=== PATIENT | male | born 1990 ===

== ENCOUNTER 2021-07-05 16:23 | Inpatient (IN) | payer SELFPAY ==
[2021-07-05] MEDS ORDERED: SODIUM CHLORIDE 0.9% 1000 ML 1,000 ML IV ONE (19:19)
[2021-07-05] MEDS ORDERED: KETOROLAC 30 MG/1 ML INJ IV ONE (19:20)
--- NOTE | 2021-07-05 20:16 | XRay Report ---
XR chest 1V ap INDICATION / CLINICAL INFORMATION: Weakness. COMPARISON: None available. FINDINGS: SUPPORT DEVICES: None. HEART /PULMONARY VASCULATURE: No significant abnormality. LUNGS / PLEURA: There are diffuse nodular opacities throughout the lungs with increased interstitial prominence. No focal consolidation. There is no pleural effusion or pneumothorax. No pneumothorax. ADDITIONAL FINDINGS: No significant additional findings. IMPRESSION: Diffuse nodular opacities throughout the lungs with diffuse increased interstitial prominence. Findin gs are suspicious for atypical pneumonia. Recommend further evaluation with CT. Signer Name: Bacilio Correia MD Signed: 07/05/2021 8:11 PM Workstation Name: [id number]
[2021-07-05 20:38] LABS: Mean Corpuscular HGB Conc 35 % (32-34); Mean Corpuscular Volume 89 fl (84-94); Platelet Count 112 K/mm3 (140-440); Red Blood Count 5.19 M/mm3 (3.65-5.03); Red Cell Distribution Width 13.4 % (13.2-15.2)
[2021-07-05 20:54] LABS: INR 0.93 (0.87-1.13)
[2021-07-05 21:09] LABS: Alanine Aminotransferase 54 units/L (7-56); Albumin 4.5 g/dL (3.9-5); BUN/Creatinine Ratio 18; Blood Urea Nitrogen 18 mg/dL (9-20); Hemolysis Index 8
[2021-07-05 21:23] LABS: Band Neutrophils # (Manual) 0.4 K/mm3; Eosinophils % (Manual) 0 % (0.0-4.3); Total Cells Counted 100
[2021-07-05 21:24] LABS: Basophils % (Manual) 0 % (0.0-1.8); Platelet Estimate Consistent w Auto; RBC Morphology Normal
[2021-07-05] MEDS ORDERED: cefTRIAXone/NS 1 GM/50 ML 1 GM/50 ML BAG IV ONE (22:50)
[2021-07-05 22:53] LABS: Bilirubin,Urine NEG (Negative); Blood,Urine NEG (Negative); Color,Urine Amber (Yellow); Mucus,Urine 3+ /HPF; Urobilinogen,Urine < 2.0 mg/dL (<2.0)
[2021-07-05] MEDS ORDERED: dexAMETHasone 4 MG/ML VIAL IV ONE (22:55)
--- NOTE | 2021-07-05 23:56 | Emergency Department Report ---
ED General Adult HPI - General Chief complaint: Skin Rash Stated complaint: RASH, FEVER Time Seen by Provider: 07/05/21 19:18 Source: patient Mode of arrival: Ambulatory Limitations: No Limitations - History of Present Illness Initial comments: Rash all over his body, c/o fever -: Gradual, days(s) Location: head, face Severity scale (0 -10): 8 Consistency: constant Associated Symptoms: cough, fever/chills, rash. denies: denies other symptoms - Related Data Allergies Allergy/AdvReac Type Severity Reaction Status Date / Time No Known Allergies Allergy Unverified 07/05/21 17:33 ED Review of Systems ROS: Stated complaint: RASH, FEVER Other details as noted in HPI Constitutional: denies: chills, fever Eyes: denies: eye pain, eye discharge, vision change ENT: denies: ear pain, throat pain Respiratory: denies: cough, shortness of breath, wheezing Cardiovascular: denies: chest pain, palpitations Endocrine: no symptoms reported Gastrointestinal: denies: abdominal pain, nausea, diarrhea Genitourinary: denies: urgency, dysuria Musculoskeletal: denies: back pain, joint swelling, arthralgia Skin: denies: rash, lesions Neurological: denies: headache, weakness, paresthesias Psychiatric: denies: anxiety, depression Hematological/Lymphatic: denies: easy bleeding, easy bruising ED Past Medical Hx - Past Medical History Previous Medical History?: No Hx Hypertension: No - Social History Smoking Status: Never Smoker ED Physical Exam - General Limitations: No Limitations General appearance: alert - Head Head exam: Present: atraumatic, normocephalic - Eye Eye exam: Present: normal appearance - ENT ENT exam: Present: mucous membranes moist - Neck Neck exam: Present: normal inspection - Respiratory Respiratory exam: Present: normal lung sounds bilaterally. Absent: respiratory distress - Cardiovascular Cardiovascular Exam: Present: regular rate, normal rhythm. Absent: systolic murmur, diastolic murmur, rubs, gallop - GI/Abdominal GI/Abdominal exam: Present: soft, normal bowel sounds - Rectal Rectal exam: Present: deferred - Extremities Exam Extremities exam: Present: normal inspection - Back Exam Back exam: Present: normal inspection - Neurological Exam Neurological exam: Present: alert, oriented X3 - Psychiatric Psychiatric exam: Present: normal affect, normal mood - Skin Skin exam: Present: rash - Expanded Skin Exam Expanded Type of lesion: Present: rash Distribution of rash: generalized, head, face, chest Description of rash: Present: macular, papular, confluent, crusting ED Course Vital Signs 07/05/21 07/05/21 07/05/21 17:34 18:33 19:58 Temperature 99.9 F H 98.4 F 101.9 F H Pulse Rate 113 H 85 Respiratory 18 18 Rate Blood Pressure 130/82 Blood Pressure 126/90 [Right] O2 Sat by Pulse 99 100 Oximetry ED Medical Decision Making - Lab Data Result diagrams: 07/05/21 19:48 07/05/21 19:48 Critical care attestation.: If time is entered above; I have spent that time in minutes in the direct care of this critically ill patient, excluding procedure time. ED Disposition Clinical Impression: Fever, Rash, Pneumonia Disposition: 09 ADMITTED INPATIENT Is pt being admited?: Yes Does the pt Need Aspirin: No Condition: Stable Instructions: Bacterial Pneumonia (ED) Referrals: PRIMARY CARE, [Primary Care Provider] - 3-5 Days
[2021-07-06] MEDS ORDERED: ONDANSETRON 4 MG/2 ML INJ IV PRN (00:38)
[2021-07-06] MEDS ORDERED: MORPHINE 2 MG/1 ML INJ IV PRN (00:38)
[2021-07-06] MEDS ORDERED: MORPHINE 4 MG/1 ML INJ IV PRN (00:38)
[2021-07-06] MEDS ORDERED: MAGNESIUM HYDROXIDE (MOM) ORAL LIQD UDC PO PRN (00:38)
[2021-07-06] MEDS ORDERED: ACETAMINOPHEN 325 MG TAB PO PRN (00:38)
--- NOTE | 2021-07-06 00:47 | History and Physical Report ---
History of Present Illness Date of examination: 07/06/21 Date of admission: 07/06/2021 Chief complaint: Fever Rash History of present illness: 30-year-old male presenting to the emergency room today complaining of fever rash which has been ongoing for a few days. Patient states that rash has been generalized and itchy. He denies any chest pain and denies any shortness of breath. Denies any cough, no nausea vomiting or abdominal pain. No hematuria or dysuria. Patient denies any recent travel, denies any known sick contacts, denies any contact with anyone with COVID-19. He admits that he only had a dose of COVID- 19 vaccine but never went back for subsequent doses. Patient works at [employer] and also rarely uses his mask. Most of the history was provided by family who was by bedside as patient is unable to communicate in Malian. Work-up in the emergency room today, labs are unremarkable. Chest x-ray however shows diffuse nodular opacities throughout the lung with diffuse increased interstitial prominence. Findings are suspicious for atypical pneumonia Further evaluation with CT of the chest recommended. Patient commenced on empiric IV antibiotics and IV steroid. Past History Past Medical History: No medical history Past Surgical History: No surgical history Social history: no significant social history Family history: no significant family history Medications and Allergies Allergies Allergy/AdvReac Type Severity Reaction Status Date / Time No Known Allergies Allergy Verified 07/06/21 00:47 Active Meds: Active Medications Acetaminophen (Acetaminophen 325 Mg Tab) 650 mg PO Q4H PRN PRN Reason: Pain MILD(1-3)/Fever >100.5/MARLOW Azithromycin (Azithromycin 250 Mg Tab) 500 mg PO QDAY HAYDE; Protocol Heparin Sodium (Porcine) (Heparin 5,000 Unit/1 Ml Vial) 5,000 unit SUB-Q Q8HR HAYDE Sodium Chloride (Nacl 0.9% 1000 Ml) 1,000 mls @ 125 mls/hr IV DIRECT HAYDE Ceftriaxone Sodium (Rocephin/Ns 2 Gm/100 Ml) 2 gm in 100 mls @ 200 mls/hr IV Q 24H HAYDE; Protocol Magnesium Hydroxide (Magnesium Hydroxide (Mom) Oral Liqd Udc) 30 ml PO Q4H PRN PRN Reason: Constipation Morphine Sulfate (Morphine 2 Mg/1 Ml Inj) 2 mg IV Q4H PRN PRN Reason: Pain, Moderate (4-6) Morphine Sulfate (Morphine 4 Mg/1 Ml Inj) 4 mg IV Q4H PRN PRN Reason: Pain , Severe (7-10) Ondansetron HCl (Ondansetron 4 Mg/2 Ml Inj) 4 mg IV Q8H PRN PRN Reason: Nausea And Vomiting Sodium Chloride (Sodium Chloride 0.9% 10 Ml Flush Syringe) 10 ml IV BID HAYDE Sodium Chloride (Sodium Chloride 0.9% 10 Ml Flush Syringe) 10 ml IV PRN PRN PRN Reason: LINE FLUSH Review of Systems Constitutional: fever, chills Ears, nose, mouth and throat: no nasal congestion, no sore throat Cardiovascular: no chest pain, no palpitations Respiratory: no cough, no shortness of breath Gastrointestinal: no abdominal pain, no nausea, no vomiting, no diarrhea Genitourinary Male: no dysuria, no hematuria, no flank pain Musculoskeletal: no neck pain, no low back pain Integumentary: rash, pruritis Neurological: no headaches, no confusion Psychiatric: no anxiety, no depression Endocrine: no polyphagia, no polydipsia, no polyuria, no nocturia Exam - Constitutional Vitals: Temp Pulse Resp BP Pulse Ox 101.9 F H 85 18 130/82 100 07/05/21 19:58 07/05/21 18:33 07/05/21 18:33 07/05/21 18:33 07/05/21 18:33 General appearance: Present: no acute distress, well-nourished - EENT Eyes: Present: PERRL, EOM intact. Absent: scleral icterus ENT: hearing intact, clear oral mucosa, dentition normal - Neck Neck: Present: supple, normal ROM - Respiratory Respiratory effort: normal Respiratory: bilateral: diminished - Cardiovascular Rhythm: regular Heart Sounds: Present: S1 & S2. Absent: gallop, systolic murmur, diastolic murmur, rub, click - Extremities Extremities: no ischemia, pulses intact, pulses symmetrical, No edema, normal temperature, Full ROM Peripheral Pulses: within normal limits - Abdominal General gastrointestinal: Present: soft, non-tender, non-distended, normal bowel sounds. Absent: mass - Integumentary Integumentary: Present: clear, warm, dry, rash (Diffuse erythemathous/pustular rash), normal turgor - Musculoskeletal Musculoskeletal: strength equal bilaterally - Psychiatric Psychiatric: appropriate mood/affect, intact judgment & insight, cooperative - Neurologic Neurologic: CNII-XII intact, no focal deficits, moves all extremities HEART Score - HEART Score Troponin: Troponin T < 0.010 ng/mL (0.00-0.029) 07/05/21 19:48 Results - Labs CBC & Chem 7: 07/05/21 19:48 07/05/21 19:48 Labs: Abnormal lab results 07/05/21 07/05/21 07/05/21 Range/Units 19:48 19:48 Unknown RBC 5.19 H (3.65-5.03) M/mm3 Hgb 16.0 H (11.8-15.2) gm/dl Hct 46.0 H (35.5-45.6) % MCHC 35 H (32-34) % Plt Count 112 L (140-440) K/mm3 Monocytes % (Manual) 14.0 H (0.0-7.3) % Monocytes # (Manual) 0.9 H (0.0-0.8) K/mm3 AST 49 H (5-40) units/L Ur Specific [place] 1.034 H (1.003-1.030) Assessment and Plan - Patient Problems (1) Pneumonia Current Visit: Yes Status: Acute Plan to address problem: Patient placed on empiric IV antibiotics and IV steroid. Will await culture results. Patient will also be ruled out for possible COVID-19. Scheduled for CT of the chest as recommended by the radiologist. Consult placed to infectious disease for further evaluation and recommendations. (2) Fever Current Visit: Yes Status: Acute Plan to address problem: Possibly secondary to the pneumonia. (3) Rash Current Visit: Yes Status: Acute Plan to address problem: Allergies: Clear. We will however place consult to infectious disease for evaluation and recommendations. (4) DVT prophylaxis Current Visit: Yes Status: Acute Plan to address problem: Patient placed on subcutaneous heparin. (5) Full code status Current Visit: Yes Status: Acute Plan to address problem: Patient is full code.
[2021-07-06] MEDS: cefTRIAXone/NS 2 GM/100 ML 2 GM/100 ML BAG IV SCH (03:05)
[2021-07-06] MEDS: SODIUM CHLORIDE 0.9% 1000 ML 1,000 ML IV SCH ×3 (03:29→23:08)
[2021-07-06] MEDS: HEPARIN 5,000 UNIT/1 ML VIAL SUB-Q SCH ×3 (05:54→22:56)
[2021-07-06] MEDS: dexAMETHasone 4 MG/ML VIAL IV SCH (10:20)
[2021-07-06] MEDS: AZITHROMYCIN 250 MG TAB PO SCH (10:20)
--- NOTE | 2021-07-06 11:55 | Consultation ---
History of Present Illness - Reason for Consult Consult date: 07/06/21 - History of Present Illness 30-year-old man no past medical history presented to hospital complaining of fevers and rash. This began a few days prior to admission, and he notes that the rash has been generalized and itchy. He otherwise denies complaints. He reports only having 1 dose of the COVID-vaccine. Febrile to 101.9 with a white count of 6.3. Normal renal function. Pending COVID PCR. Imaging personally reviewed: Chest x-ray: Diffuse nodular opacities throughout the lungs, possible atypical pneumonia. Review of systems: Deferred to reduce to the risk of transmission of COVID-19 Past History Past Medical History: No medical history Past Surgical History: No surgical history Social history: no significant social history Family history: hypertension Medications and Allergies Allergies Allergy/AdvReac Type Severity Reaction Status Date / Time No Known Allergies Allergy Verified 07/06/21 00:47 Active Meds: Active Medications Acetaminophen (Acetaminophen 325 Mg Tab) 650 mg PO Q4H PRN PRN Reason: Pain MILD(1-3)/Fever >100.5/MARLOW Last Admin: 07/06/21 03:28 Dose: 650 mg Azithromycin (Azithromycin 250 Mg Tab) 500 mg PO QDAY HAYDE; Protocol Stop: 07/10/21 10:01 Last Admin: 07/06/21 10:20 Dose: 500 mg Dexamethasone (Dexamethasone 4 Mg/Ml Vial) 6 mg IV Q24H HAYDE Last Admin: 07/06/21 10:20 Dose: 6 mg Heparin Sodium (Porcine) (Heparin 5,000 Unit/1 Ml Vial) 5,000 unit SUB-Q Q8HR HAYDE Last Admin: 07/06/21 05:54 Dose: 5,000 unit Sodium Chloride (Nacl 0.9% 1000 Ml) 1,000 mls @ 125 mls/hr IV DIRECT HAYDE Last Admin: 07/06/21 10:36 Dose: 125 mls/hr Ceftriaxone Sodium (Rocephin/Ns 2 Gm/100 Ml) 2 gm in 100 mls @ 200 mls/hr IV Q24H HAYDE; Protocol Last Admin: 07/06/21 03:05 Dose: Not Given Magnesium Hydroxide (Magnesium Hydroxide (Mom) Oral Liqd Udc) 30 ml PO Q4H PRN PRN Reason: Constipation Morphine Sulfate (Morphine 2 Mg/1 Ml Inj) 2 mg IV Q4H PRN PRN Reason: Pain, Moderate (4-6) Morphine Sulfate (Morphine 4 Mg/1 Ml Inj) 4 mg IV Q4H PRN PRN Reason: Pain , Severe (7-10) Ondansetron HCl (Ondansetron 4 Mg/2 Ml Inj) 4 mg IV Q8H PRN PRN Reason: Nausea And Vomiting Sodium Chloride (Sodium Chloride 0.9% 10 Ml Flush Syringe) 10 ml IV BID HAYDE Last Admin: 07/06/21 10:20 Dose: 10 ml Sodium Chloride (Sodium Chloride 0.9% 10 Ml Flush Syringe) 10 ml IV PRN PRN PRN Reason: LINE FLUSH Physical Examination - Physical Exam Narrative exam: Physical exam deferred to reduce risk of transmission of COVID-19. Please refer to primary team's note. - Constitutional Vitals: Vital Signs Temp Pulse Resp BP Pulse Ox 97.9 F 75 18 127/71 95 07/06/21 10:14 07/06/21 10:14 07/06/21 10:14 07/06/21 10:14 07/06/21 10:14 Temperature -Last 24 Hours Temperature 97.9 F Temperature 99.5 F Temperature 101.2 F Temperature 101.9 F Temperature 98.4 F Temperature 99.9 F Results - Labs CBC & Chem 7: 07/05/21 19:48 07/05/21 19:48 Labs: Abnormal lab results 07/05/21 07/05/21 07/05/21 Range/Units 19:48 19:48 Unknown RBC 5.19 H (3.65-5.03) M/mm3 Hgb 16.0 H (11.8-15.2) gm/dl Hct 46.0 H (35.5-45.6) % MCHC 35 H (32-34) % Plt Count 112 L (140-440) K/mm3 Monocytes % (Manual) 14.0 H (0.0-7.3) % Monocytes # (Manual) 0.9 H (0.0-0.8) K/mm3 AST 49 H (5-40) units/L Ur Specific [place] 1.034 H (1.003-1.030) Assessment and Plan Cultures: COVID-19 PCR pending A/P: 30-year-old man no past medical history now with: #COVID PUI: Pending PCR. Not hypoxic. Chest x-ray with nodular opacities. #Diffuse rash: Unclear etiology Recs: -Follow-up COVID PCR -If positive and patient hypoxic, please start dexamethasone. If requiring supplemental oxygen please start Remdesivir -Order procalcitonin for a.m. labs -Continue ceftriaxone and azithromycin for now. Thank you for the consult, we will continue to follow. Reji Lam MD [facility] O: [phone] F: [phone]
--- NOTE | 2021-07-06 12:35 | Progress Note ---
Assessment and Plan Assessment and plan: Sepsis. The patient meets criteria given the fever, tachycardia and diagnosis of pneumonia. COVID PUI Diffuse rash 07/06/2021. We will follow-up COVID PCR and if positive and hypoxic, we will start on dexamethasone. Follow-up procalcitonin levels. Continue ceftriaxone and azithromycin. ID following History Interval history: No new issues overnight Hospitalist Physical - Constitutional Vitals: Temp Pulse Resp BP Pulse Ox 97.9 F 75 18 127/71 95 07/06/21 10:14 07/06/21 10:14 07/06/21 10:14 07/06/21 10:14 07/06/21 10:14 General appearance: Present: no acute distress, well-nourished - EENT Eyes: Present: PERRL, EOM intact ENT: hearing intact, clear oral mucosa, dentition normal - Neck Neck: Present: supple, normal ROM - Respiratory Respiratory effort: normal Respiratory: bilateral: CTA - Cardiovascular Rhythm: regular Heart Sounds: Present: S1 & S2. Absent: gallop, rub - Extremities Extremities: no ischemia, No edema, Full ROM - Abdominal General gastrointestinal: soft, non-tender, non-distended, normal bowel sounds - Integumentary Integumentary: Present: clear, warm, dry - Neurologic Neurologic: CNII-XII intact, moves all extremities HEART Score - HEART Score Troponin: Troponin T < 0.010 ng/mL (0.00-0.029) 07/05/21 19:48 Results - Labs CBC & Chem 7: 07/05/21 19:48 07/05/21 19:48 Labs: Laboratory Last Values WBC 6.3 K/mm3 (4.5-11.0) 07/05/21 19:48 RBC 5.19 M/mm3 (3.65-5.03) H 07/05/21 19:48 Hgb 16.0 gm/dl (11.8-15.2) H 07/05/21 19:48 Hct 46.0 % (35.5-45.6) H 07/05/21 19:48 MCV 89 fl (84-94) 07/05/21 19:48 MCH 31 pg (28-32) 07/05/21 19:48 MCHC 35 % (32-34) H 07/05/21 19:48 RDW 13.4 % (13.2-15.2) 07/05/21 19:48 Plt Count 112 K/mm3 (140-440) L 07/05/21 19:48 [place] % (Auto) [employer] Specialist 07/05/21 19:48 Baso % (Auto) [employer] Safety And Health Specialist 07/05/21 19:48 Add Manual Diff Complete 07/05/21 19:48 Total Counted 100 07/05/21 19:48 Seg Neuts % (Manual) 58.0 % (40.0-70.0) 07/05/21 19:48 Band Neutrophils % 7.0 % 07/05/21 19:48 Lymphocytes % (Manual) 21.0 % (13.4-35.0) 07/05/21 19:48 Reactive Lymphs % (Man) 0 % 07/05/21 19:48 Monocytes % (Manual) 14.0 % (0.0-7.3) H 07/05/21 19:48 Eosinophils % (Manual) 0 % (0.0-4.3) 07/05/21 19:48 Basophils % (Manual) 0 % (0.0-1.8) 07/05/21 19:48 Metamyelocytes % 0 % 07/05/21 19:48 Myelocytes % 0 % 07/05/21 19:48 Promyelocytes % 0 % 07/05/21 19:48 Blast Cells % 0 % 07/05/21 19:48 Nucleated RBC % Not Reportable 07/05/21 19:48 Seg Neutrophils # Man 3.7 K/mm3 (1.8-7.7) 07/05/21 19:48 Band Neutrophils # 0.4 K/mm3 07/05/21 19:48 Lymphocytes # (Manual) 1.3 K/mm3 (1.2-5.4) 07/05/21 19:48 Abs React Lymphs (Man) 0.0 K/mm3 07/05/21 19:48 Monocytes # (Manual) 0.9 K/mm3 (0.0-0.8) H 07/05/21 19:48 Eosinophils # (Manual) 0.0 K/mm3 (0.0-0.4) 07/05/21 19:48 Basophils # (Manual) 0.0 K/mm3 (0.0-0.1) 07/05/21 19:48 Metamyelocytes # 0.0 K/mm3 07/05/21 19:48 Myelocytes # 0.0 K/mm3 07/05/21 19:48 Promyelocytes # 0.0 K/mm3 07/05/21 19:48 Blast Cells # 0.0 K/mm3 07/05/21 19:48 WBC Morphology Not Reportable 07/05/21 19:48 Hypersegmented Neuts Not Reportable 07/05/21 19:48 Hyposegmented Neuts Not Reportable 07/05/21 19:48 Hypogranular Neuts Not Reportable 07/05/21 19:48 Smudge Cells Not Reportable 07/05/21 19:48 Toxic Granulation Not Reportable 07/05/21 19:48 Toxic Vacuolation Not Reportable 07/05/21 19:48 Dohle Bodies Not Reportable 07/05/21 19:48 Pelger-Huet Anomaly Not Reportable 07/05/21 19:48 Gwendolyn Rods Not Reportable 07/05/21 19:48 Platelet Estimate Consistent w auto 07/05/21 19:48 Clumped Platelets Not Reportable 07/05/21 19:48 Plt Clumps, EDTA Not Reportable 07/05/21 19:48 Large Platelets Not Reportable 07/05/21 19:48 Giant Platelets Not Reportable 07/05/21 19:48 Platelet Satelliting Not Reportable 07/05/21 19:48 Plt Morphology Comment Not Reportable 07/05/21 19:48 RBC Morphology Normal 07/05/21 19:48 Dimorphic RBCs Not Reportable 07/05/21 19:48 Polychromasia Not Reportable 07/05/21 19:48 Hypochromasia Not Reportable 07/05/21 19:48 Poikilocytosis Not Reportable 07/05/21 19:48 Anisocytosis Not Reportable 07/05/21 19:48 Microcytosis Not Reportable 07/05/21 19:48 Macrocytosis Not Reportable 07/05/21 19:48 Spherocytes Not Reportable 07/05/21 19:48 Pappenheimer Bodies Not Reportable 07/05/21 19:48 Sickle Cells Not Reportable 07/05/21 19:48 Target Cells Not Reportable 07/05/21 19:48 Tear Drop Cells Not Reportable 07/05/21 19:48 Ovalocytes Not Reportable 07/05/21 19:48 Helmet Cells Not Reportable 07/05/21 19:48 [place] Bodies Not Reportable 07/05/21 19:48 Tow Rings Not Reportable 07/05/21 19:48 [place] Cells Not Reportable 07/05/21 19:48 Bite Cells Not Reportable 07/05/21 19:48 Crenated Cell Not Reportable 07/05/21 19:48 Elliptocytes Not Reportable 07/05/21 19:48 Acanthocytes (Spur) Not Reportable 07/05/21 19:48 Rouleaux Not Reportable 07/05/21 19:48 Hemoglobin C Crystals Not Reportable 07/05/21 19:48 Schistocytes Not Reportable 07/05/21 19:48 Malaria parasites Not Reportable 07/05/21 19:48 Augusto Bodies Not Reportable 07/05/21 19:48 Hem Pathologist Commnt No 07/05/21 19:48 PT 13.5 Sec. (12.2-14.9) 07/05/21 Unknown INR 0.93 (0.87-1.13) 07/05/21 Unknown Sodium 138 mmol/L (137-145) 07/05/21 19:48 Potassium 4.4 mmol/L (3.6-5.0) 07/05/21 19:48 Chloride 101.1 mmol/L (98-107) 07/05/21 19:48 Carbon Dioxide 26 mmol/L (22-30) 07/05/21 19:48 Anion Gap 15 mmol/L 07/05/21 19:48 BUN 18 mg/dL (9-20) 07/05/21 19:48 Creatinine 1.0 mg/dL (0.8-1.3) 07/05/21 19:48 Estimated GFR > 60 ml/min 07/05/21 19:48 BUN/Creatinine Ratio 18 % 07/05/21 19:48 Glucose 97 mg/dL (75-100) 07/05/21 19:48 Lactic Acid 1.30 mmol/L (0.7-2.0) 07/05/21 19:53 Calcium 9.0 mg/dL (8.4-10.2) 07/05/21 19:48 Magnesium 2.10 mg/dL (1.7-2.3) 07/05/21 19:48 Total Bilirubin 0.30 mg/dL (0.1-1.2) 07/05/21 19:48 AST 49 units/L (5-40) H 07/05/21 19:48 ALT 54 units/L (7-56) 07/05/21 19:48 Alkaline Phosphatase 104 units/L (35-129) 07/05/21 19:48 Total Creatine Kinase 95 units/L (55-170) 07/05/21 19:48 Troponin T < 0.010 ng/mL (0.00-0.029) 07/05/21 19:48 Total Protein 6.9 g/dL (6.3-8.2) 07/05/21 19:48 Albumin 4.5 g/dL (3.9-5) 07/05/21 19:48 Albumin/Globulin Ratio 1.9 % 07/05/21 19:48 Urine Color Eliane (Yellow) 07/05/21 Unknown Urine Turbidity Clear (Clear) 07/05/21 Unknown Urine pH 5.0 (5.0-7.0) 07/05/21 Unknown Ur Specific [place] 1.034 (1.003-1.030) H 07/05/21 Unknown Urine Protein 100 mg/dl mg/dL (Negative) 07/05/21 Unknown Urine Glucose (UA) Neg mg/dL (Negative) 07/05/21 Unknown Urine Ketones 20 mg/dL (Negative) 07/05/21 Unknown Urine Blood Neg (Negative) 07/05/21 Unknown Urine Nitrite Neg (Negative) 07/05/21 Unknown Urine Bilirubin Neg (Negative) 07/05/21 Unknown Urine Urobilinogen < 2.0 mg/dL (<2.0) 07/05/21 Unknown Ur Leukocyte Esterase Neg (Negative) 07/05/21 Unknown Urine WBC (Auto) 2.0 /HPF (0.0-6.0) 07/05/21 Unknown Urine RBC (Auto) 12.0 /HPF (0.0-6.0) 07/05/21 Unknown U Epithel Cells (Auto) 1.0 /HPF (0-13.0) 07/05/21 Unknown Urine Mucus 3+ /HPF 07/05/21 Unknown Collazo/IV: Voiding Method Toilet Active Medications - Current Medications Current Medications: Generic Name Dose Route Start Last Admin Trade Name Freq PRN Reason Stop Dose Admin Acetaminophen 650 mg 07/06/21 00:38 07/06/21 03:28 Acetaminophen 325 Mg Tab PO 650 mg Q4H PRN Administration Pain MILD(1-3)/Fever >100.5/MARLOW Azithromycin 500 mg 07/06/21 10:00 07/06/21 10:20 Azithromycin 250 Mg Tab PO 07/10/21 10:01 500 mg QDAY HAYDE Administration Protocol Dexamethasone 6 mg 07/06/21 08:00 07/06/21 10:20 Dexamethasone 4 Mg/Ml Vial IV 6 mg Q24H HAYDE Administration Heparin Sodium (Porcine) 5,000 unit 07/06/21 06:00 07/06/21 05:54 Heparin 5,000 Unit/1 Ml Vial SUB-Q 5,000 unit Q8HR HAYDE Administration Sodium Chloride 1,000 mls @ 125 mls/hr 07/06/21 00:45 07/06/21 10:36 Nacl 0.9% 1000 Ml IV 125 mls/hr DIRECT HAYDE Administration Ceftriaxone Sodium 2 gm in 100 mls @ 200 mls/hr 07/06/21 01:00 07/06/21 03:05 Rocephin/Ns 2 Gm/100 Ml IV Not Given Q24H HAYDE Protocol Magnesium Hydroxide 30 ml 07/06/21 00:38 Magnesium Hydroxide (Mom) Oral Liqd Udc PO Q4H PRN Constipation Morphine Sulfate 2 mg 07/06/21 00:38 Morphine 2 Mg/1 Ml Inj IV Q4H PRN Pain, Moderate (4-6) Morphine Sulfate 4 mg 07/06/21 00:38 Morphine 4 Mg/1 Ml Inj IV Q4H PRN Pain , Severe (7-10) Ondansetron HCl 4 mg 07/06/21 00:38 Ondansetron 4 Mg/2 Ml Inj IV Q8H PRN Nausea And Vomiting Sodium Chloride 10 ml 07/06/21 10:00 07/06/21 10:20 Sodium Chloride 0.9% 10 Ml Flush Syringe IV 10 ml BID HAYDE Administration Sodium Chloride 10 ml 07/06/21 00:38 Sodium Chloride 0.9% 10 Ml Flush Syringe IV PRN PRN LINE FLUSH
--- NOTE | 2021-07-06 14:20 | Cat Scan Report ---
CT CHEST WITHOUT AND WITH CONTRAST INDICATION / CLINICAL INFORMATION: Nodular densities in the lungs 100 ML OMNI 300 . Abnormal chest x -ray TECHNIQUE: Axial CT images were obtained through the chest before and after 100 cc of Omnipaque 300 I V contrast. All CT scans at this location are performed using CT dose reduction for ALARA by means of automated exposure control. COMPARISON: AP chest performed yesterday FINDINGS: HEART: No significant abnormality. CORONARY ARTERY CALCIFICATION: Absent -- None. THORACIC AORTA: No significant abnormality. MEDIASTINUM / LYNETTE: There are scattered borderline to mildly enlarged lymph nodes in the AP window, s ubcarinal chain and bilateral hilar chains. The largest lymph node measures 1.3 cm in short axis. No necrotic or calcified lymph nodes. PLEURA: No pleural effusion. No pneumothorax. LUNGS: There are innumerable tiny nodular densities scattered throughout both lungs. The nodules rang e from 1 mm-4 mm in diameter. There appears to be a perilymphatic distribution to this nodularity. A miliary pattern could also be considered. There is no dominant mass, consolidation or fibrosis. ADDITIONAL FINDINGS: None. UPPER ABDOMEN: No significant abnormality. SKELETAL SYSTEM: No significant abnormality. IMPRESSION: There are innumerable tiny nodular densities scattered throughout both lungs as described. This appea rs to be in a perilymphatic distribution although a miliary pattern could also be considered. There a re borderline to mildly enlarged mediastinal lymph nodes. 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 Less likely considerations include lymphangitic carcinomatosis, pneumoconioses or ly mphocytic interstitial pneumonia. Please correlate with the patient's clinical history and presentati on. Signer Name: Manjinder Yarbrough Jr, MD Signed: 07/06/2021 2:15 PM Workstation Name: [id number]
[2021-07-07] MEDS: cefTRIAXone/NS 2 GM/100 ML 2 GM/100 ML BAG IV SCH (03:48)
[2021-07-07] MEDS: HEPARIN 5,000 UNIT/1 ML VIAL SUB-Q SCH ×3 (06:10→21:57)
[2021-07-07 06:20] LABS: Hemoglobin 13.7 gm/dl (11.8-15.2); Mean Corpuscular HGB Conc 34 % (32-34); Mean Corpuscular Volume 89 fl (84-94); Platelet Count 148 K/mm3 (140-440); Red Blood Count 4.47 M/mm3 (3.65-5.03); Red Cell Distribution Width 13.4 % (13.2-15.2)
[2021-07-07 06:40] LABS: Blood Urea Nitrogen 13 mg/dL (9-20); Calcium 8.6 mg/dL (8.4-10.2); Hemolysis Index 6
[2021-07-07 06:51] LABS: BUN/Creatinine Ratio 22
[2021-07-07 07:09] LABS: Total Cells Counted 100
[2021-07-07 07:10] LABS: Basophils % (Manual) 0 % (0.0-1.8); Eosinophils % (Manual) 0 % (0.0-4.3); Platelet Estimate Consistent w Auto; RBC Morphology Normal
--- NOTE | 2021-07-07 09:20 | Progress Note ---
Assessment and Plan Assessment and plan: Sepsis. The patient meets criteria given the fever, tachycardia and diagnosis of pneumonia. Diffuse rash 07/06/2021. We will follow-up COVID PCR and if positive and hypoxic, we will start on dexamethasone. Follow-up procalcitonin levels. Continue ceftriaxone and azithromycin. ID following. 07/07/2021. COVID PCR was found to be negative. However, chest x-ray revealed Diffuse nodular opacities throughout the lungs, possible atypical pneumonia. Follow-up procalcitonin levels. Continue IV antibiotics per ID recommendations History Interval history: No new issues overnight Hospitalist Physical - Constitutional Vitals: Temp Pulse Resp BP Pulse Ox 97.9 F 60 20 106/61 97 07/07/21 06:07 07/07/21 06:07 07/07/21 06:07 07/07/21 06:07 07/07/21 08:51 General appearance: Present: no acute distress, well-nourished - EENT Eyes: Present: PERRL, EOM intact ENT: hearing intact, clear oral mucosa, dentition normal - Neck Neck: Present: supple, normal ROM - Respiratory Respiratory effort: normal Respiratory: bilateral: CTA - Cardiovascular Rhythm: regular Heart Sounds: Present: S1 & S2. Absent: gallop, rub - Extremities Extremities: no ischemia, No edema, Full ROM - Abdominal General gastrointestinal: soft, non-tender, non-distended, normal bowel sounds - Integumentary Integumentary: Present: clear, warm, dry - Neurologic Neurologic: CNII-XII intact, moves all extremities HEART Score - HEART Score Troponin: Troponin T < 0.010 ng/mL (0.00-0.029) 07/05/21 19:48 Results - Labs CBC & Chem 7: 07/07/21 05:39 07/07/21 05:39 Labs: Laboratory Last Values WBC 9.5 K/mm3 (4.5-11.0) 07/07/21 05:39 RBC 4.47 M/mm3 (3.65-5.03) 07/07/21 05:39 Hgb 13.7 gm/dl (11.8-15.2) 07/07/21 05:39 Hct 40.0 % (35.5-45.6) D 07/07/21 05:39 MCV 89 fl (84-94) 07/07/21 05:39 MCH 31 pg (28-32) 07/07/21 05:39 MCHC 34 % (32-34) 07/07/21 05:39 RDW 13.4 % (13.2-15.2) 07/07/21 05:39 Plt Count 148 K/mm3 (140-440) 07/07/21 05:39 [place] % (Auto) Litigation Specialist 07/07/21 05:39 Baso % (Auto) Litigation Specialist 07/05/21 19:48 Add Manual Diff Complete 07/07/21 05:39 Total Counted 100 07/07/21 05:39 Seg Neuts % (Manual) 63.0 % (40.0-70.0) 07/07/21 05:39 Band Neutrophils % 0 % 07/07/21 05:39 Lymphocytes % (Manual) 30.0 % (13.4-35.0) 07/07/21 05:39 Reactive Lymphs % (Man) 0 % 07/07/21 05:39 Monocytes % (Manual) 2.0 % (0.0-7.3) 07/07/21 05:39 Eosinophils % (Manual) 0 % (0.0-4.3) 07/07/21 05:39 Basophils % (Manual) 0 % (0.0-1.8) 07/07/21 05:39 Metamyelocytes % 0 % 07/07/21 05:39 Myelocytes % 0 % 07/07/21 05:39 Promyelocytes % 0 % 07/07/21 05:39 Blast Cells % 5.0 % 07/07/21 05:39 Nucleated RBC % Not Reportable 07/07/21 05:39 Seg Neutrophils # Man 6.0 K/mm3 (1.8-7.7) 07/07/21 05:39 Band Neutrophils # 0.0 K/mm3 07/07/21 05:39 Lymphocytes # (Manual) 2.9 K/mm3 (1.2-5.4) 07/07/21 05:39 Abs React Lymphs (Man) 0.0 K/mm3 07/07/21 05:39 Monocytes # (Manual) 0.2 K/mm3 (0.0-0.8) 07/07/21 05:39 Eosinophils # (Manual) 0.0 K/mm3 (0.0-0.4) 07/07/21 05:39 Basophils # (Manual) 0.0 K/mm3 (0.0-0.1) 07/07/21 05:39 Metamyelocytes # 0.0 K/mm3 07/07/21 05:39 Myelocytes # 0.0 K/mm3 07/07/21 05:39 Promyelocytes # 0.0 K/mm3 07/07/21 05:39 Blast Cells # 0.5 K/mm3 07/07/21 05:39 WBC Morphology Not Reportable 07/07/21 05:39 Hypersegmented Neuts Not Reportable 07/07/21 05:39 Hyposegmented Neuts Not Reportable 07/07/21 05:39 Hypogranular Neuts Not Reportable 07/07/21 05:39 Smudge Cells Not Reportable 07/07/21 05:39 Toxic Granulation Not Reportable 07/07/21 05:39 Toxic Vacuolation Not Reportable 07/07/21 05:39 Dohle Bodies Not Reportable 07/07/21 05:39 Pelger-Huet Anomaly Not Reportable 07/07/21 05:39 Gwendolyn Rods Not Reportable 07/07/21 05:39 Platelet Estimate Consistent w auto 07/07/21 05:39 Clumped Platelets Not Reportable 07/07/21 05:39 Plt Clumps, EDTA Not Reportable 07/07/21 05:39 Large Platelets Not Reportable 07/07/21 05:39 Giant Platelets Not Reportable 07/07/21 05:39 Platelet Satelliting Not Reportable 07/07/21 05:39 Plt Morphology Comment Not Reportable 07/07/21 05:39 RBC Morphology Normal 07/07/21 05:39 Dimorphic RBCs Not Reportable 07/07/21 05:39 Polychromasia Not Reportable 07/07/21 05:39 Hypochromasia Not Reportable 07/07/21 05:39 Poikilocytosis Not Reportable 07/07/21 05:39 Anisocytosis Not Reportable 07/07/21 05:39 Microcytosis Not Reportable 07/07/21 05:39 Macrocytosis Not Reportable 07/07/21 05:39 Spherocytes Not Reportable 07/07/21 05:39 Pappenheimer Bodies Not Reportable 07/07/21 05:39 Sickle Cells Not Reportable 07/07/21 05:39 Target Cells Not Reportable 07/07/21 05:39 Tear Drop Cells Not Reportable 07/07/21 05:39 Ovalocytes Not Reportable 07/07/21 05:39 Helmet Cells Not Reportable 07/07/21 05:39 García-[place] Bodies Not Reportable 07/07/21 05:39 [place] Rings Not Reportable 07/07/21 05:39 [place] Cells Not Reportable 07/07/21 05:39 Bite Cells Not Reportable 07/07/21 05:39 Crenated Cell Not Reportable 07/07/21 05:39 Elliptocytes Not Reportable 07/07/21 05:39 Acanthocytes (Spur) Not Reportable 07/07/21 05:39 Rouleaux Not Reportable 07/07/21 05:39 Hemoglobin C Crystals Not Reportable 07/07/21 05:39 Schistocytes Not Reportable 07/07/21 05:39 Malaria parasites Not Reportable 07/07/21 05:39 Augusto Bodies Not Reportable 07/07/21 05:39 Hem Pathologist Commnt No 07/07/21 05:39 PT 13.5 Sec. (12.2-14.9) 07/05/21 Unknown INR 0.93 (0.87-1.13) 07/05/21 Unknown Sodium 139 mmol/L (137-145) 07/07/21 05:39 Potassium 4.1 mmol/L (3.6-5.0) 07/07/21 05:39 Chloride 108.0 mmol/L (98-107) H 07/07/21 05:39 Carbon Dioxide 23 mmol/L (22-30) 07/07/21 05:39 Anion Gap 12 mmol/L 07/07/21 05:39 BUN 13 mg/dL (9-20) 07/07/21 05:39 Creatinine 0.6 mg/dL (0.8-1.3) L 07/07/21 05:39 Estimated GFR > 60 ml/min 07/07/21 05:39 BUN/Creatinine Ratio 22 % 07/07/21 05:39 Glucose 104 mg/dL (75-100) H 07/07/21 05:39 Lactic Acid 1.30 mmol/L (0.7-2.0) 07/05/21 19:53 Calcium 8.6 mg/dL (8.4-10.2) 07/07/21 05:39 Magnesium 2.10 mg/dL (1.7-2.3) 07/05/21 19:48 Total Bilirubin 0.30 mg/dL (0.1-1.2) 07/05/21 19:48 AST 49 units/L (5-40) H 07/05/21 19:48 ALT 54 units/L (7-56) 07/05/21 19:48 Alkaline Phosphatase 104 units/L (35-129) 07/05/21 19:48 Total Creatine Kinase 95 units/L (55-170) 07/05/21 19:48 Troponin T < 0.010 ng/mL (0.00-0.029) 07/05/21 19:48 Total Protein 6.9 g/dL (6.3-8.2) 07/05/21 19:48 Albumin 4.5 g/dL (3.9-5) 07/05/21 19:48 Albumin/Globulin Ratio 1.9 % 07/05/21 19:48 Urine Color Eliane (Yellow) 07/05/21 Unknown Urine Turbidity Clear (Clear) 07/05/21 Unknown Urine pH 5.0 (5.0-7.0) 07/05/21 Unknown Ur Specific [place] 1.034 (1.003-1.030) H 07/05/21 Unknown Urine Protein 100 mg/dl mg/dL (Negative) 07/05/21 Unknown Urine Glucose (UA) Neg mg/dL (Negative) 07/05/21 Unknown Urine Ketones 20 mg/dL (Negative) 07/05/21 Unknown Urine Blood Neg (Negative) 07/05/21 Unknown Urine Nitrite Neg (Negative) 07/05/21 Unknown Urine Bilirubin Neg (Negative) 07/05/21 Unknown Urine Urobilinogen < 2.0 mg/dL (<2.0) 07/05/21 Unknown Ur Leukocyte Esterase Neg (Negative) 07/05/21 Unknown Urine WBC (Auto) 2.0 /HPF (0.0-6.0) 07/05/21 Unknown Urine RBC (Auto) 12.0 /HPF (0.0-6.0) 07/05/21 Unknown U Epithel Cells (Auto) 1.0 /HPF (0-13.0) 07/05/21 Unknown Urine Mucus 3+ /HPF 07/05/21 Unknown Coronavirus (PCR) Negative (Negative) 07/06/21 10:27 Collazo/IV: Voiding Method Toilet Active Medications - Current Medications Current Medications: Generic Name Dose Route Start Last Admin Trade Name Freq PRN Reason Stop Dose Admin Acetaminophen 650 mg 07/06/21 00:38 07/06/21 03:28 Acetaminophen 325 Mg Tab PO 650 mg Q4H PRN Administration Pain MILD(1-3)/Fever >100.5/MARLOW Azithromycin 500 mg 07/06/21 10:00 07/06/21 10:20 Azithromycin 250 Mg Tab PO 07/10/21 10:01 500 mg QDAY HAYDE Administration Protocol Dexamethasone 6 mg 07/06/21 08:00 07/06/21 10:20 Dexamethasone 4 Mg/Ml Vial IV 6 mg Q24H HAYDE Administration Heparin Sodium (Porcine) 5,000 unit 07/06/21 06:00 07/07/21 06:10 Heparin 5,000 Unit/1 Ml Vial SUB-Q 5,000 unit Q8HR HAYDE Administration Sodium Chloride 1,000 mls @ 125 mls/hr 07/06/21 00:45 07/06/21 23:08 Nacl 0.9% 1000 Ml IV 125 mls/hr DIRECT HAYDE Administration Ceftriaxone Sodium 2 gm in 100 mls @ 200 mls/hr 07/06/21 01:00 07/07/21 03:48 Rocephin/Ns 2 Gm/100 Ml IV 200 mls/hr Q24H HAYDE Administration Protocol Magnesium Hydroxide 30 ml 07/06/21 00:38 Magnesium Hydroxide (Mom) Oral Liqd Udc PO Q4H PRN Constipation Morphine Sulfate 2 mg 07/06/21 00:38 Morphine 2 Mg/1 Ml Inj IV Q4H PRN Pain, Moderate (4-6) Morphine Sulfate 4 mg 07/06/21 00:38 Morphine 4 Mg/1 Ml Inj IV Q4H PRN Pain , Severe (7-10) Ondansetron HCl 4 mg 07/06/21 00:38 Ondansetron 4 Mg/2 Ml Inj IV Q8H PRN Nausea And Vomiting Sodium Chloride 10 ml 07/06/21 10:00 07/06/21 23:16 Sodium Chloride 0.9% 10 Ml Flush Syringe IV 10 ml BID HAYDE Administration Sodium Chloride 10 ml 07/06/21 00:38 Sodium Chloride 0.9% 10 Ml Flush Syringe IV PRN PRN LINE FLUSH
[2021-07-07] MEDS: AZITHROMYCIN 250 MG TAB PO SCH (09:51)
[2021-07-07] MEDS: dexAMETHasone 4 MG/ML VIAL IV SCH (09:51)
[2021-07-07] MEDS: SODIUM CHLORIDE 0.9% 1000 ML 1,000 ML IV SCH ×2 (09:55→22:01)
--- NOTE | 2021-07-07 13:30 | Progress Note ---
Assessment and Plan Cultures: COVID-19 PCR negative A/P: 30-year-old man no past medical history now with: #Atypical pneumonia: Currently on antibiotics #Diffuse rash: Unclear etiology Recs: -Order procalcitonin for a.m. labs -follow-up -Continue ceftriaxone and azithromycin for now. -With a rash I ordered HIV and syphilis. Otherwise if persistent would need dermatologic evaluation -If improved would plan to discharge on Omnicef 300 mg every 12 hours to complete 5 total days antibiotics. Thank you for the consult, we will continue to follow. Reji Lam MD [facility] ([facility]) O: [phone] F: [phone] Subjective Date of service: 07/07/21 Interval history: Afebrile, normal white count. No acute issues. Objective - Exam Narrative Exam: Physical exam deferred to reduce risk of transmission of COVID-19. Please refer to primary team's note. - Constitutional Vitals: Vital Signs Temp Pulse Resp BP Pulse Ox 97.0 F L 71 20 110/54 97 07/07/21 09:52 07/07/21 09:52 07/07/21 06:07 07/07/21 09:52 07/07/21 08:51 Temperature -Last 24 Hours Temperature 97.0 F Temperature 97.9 F Temperature 98.3 F - Labs CBC & Chem 7: 07/07/21 05:39 07/07/21 05:39 Labs: Abnormal lab results 07/07/21 Range/Units 05:39 Chloride 108.0 H (98-107) mmol/L Creatinine 0.6 L (0.8-1.3) mg/dL Glucose 104 H (75-100) mg/dL
[2021-07-08] MEDS: cefTRIAXone/NS 2 GM/100 ML 2 GM/100 ML BAG IV SCH (00:27)
[2021-07-08] MEDS: HEPARIN 5,000 UNIT/1 ML VIAL SUB-Q SCH ×3 (06:14→21:36)
[2021-07-08] MEDS: AZITHROMYCIN 250 MG TAB PO SCH (09:55)
--- NOTE | 2021-07-08 10:44 | Progress Note ---
Assessment and Plan Assessment and plan: Sepsis. The patient meets criteria given the fever, tachycardia and diagnosis of pneumonia. Diffuse rash 07/06/2021. We will follow-up COVID PCR and if positive and hypoxic, we will start on dexamethasone. Follow-up procalcitonin levels. Continue ceftriaxone and azithromycin. ID following. 07/07/2021. COVID PCR was found to be negative. However, chest x-ray revealed Diffuse nodular opacities throughout the lungs, possible atypical pneumonia. Follow-up procalcitonin levels. Continue IV antibiotics per ID recommendations 07/08/2021. Continue IV antibiotics per ID recommendations. HIV and syphilis nonreactive. Follow-up procalcitonin levels. Anticipate discharge later today or in a.m. if okay with ID History Interval history: No new issues overnight Hospitalist Physical - Constitutional Vitals: Temp Pulse Resp BP Pulse Ox 98.0 F 58 L 24 111/54 100 07/08/21 04:40 07/08/21 04:40 07/08/21 04:40 07/08/21 04:40 07/08/21 07:46 General appearance: Present: no acute distress, well-nourished - EENT Eyes: Present: PERRL, EOM intact ENT: hearing intact, clear oral mucosa, dentition normal - Neck Neck: Present: supple, normal ROM - Respiratory Respiratory effort: normal Respiratory: bilateral: CTA - Cardiovascular Rhythm: regular Heart Sounds: Present: S1 & S2. Absent: gallop, rub - Extremities Extremities: no ischemia, No edema, Full ROM - Abdominal General gastrointestinal: soft, non-tender, non-distended, normal bowel sounds - Integumentary Integumentary: Present: clear, warm, dry - Neurologic Neurologic: CNII-XII intact, moves all extremities HEART Score - HEART Score Troponin: Troponin T < 0.010 ng/mL (0.00-0.029) 07/05/21 19:48 Results - Labs CBC & Chem 7: 07/07/21 05:39 07/07/21 05:39 Labs: Laboratory Last Values WBC 9.5 K/mm3 (4.5-11.0) 07/07/21 05:39 RBC 4.47 M/mm3 (3.65-5.03) 07/07/21 05:39 Hgb 13.7 gm/dl (11.8-15.2) 07/07/21 05:39 Hct 40.0 % (35.5-45.6) D 07/07/21 05:39 MCV 89 fl (84-94) 07/07/21 05:39 MCH 31 pg (28-32) 07/07/21 05:39 MCHC 34 % (32-34) 07/07/21 05:39 RDW 13.4 % (13.2-15.2) 07/07/21 05:39 Plt Count 148 K/mm3 (140-440) 07/07/21 05:39 [place] % (Auto) Technical Illustrations Map Inker 07/07/21 05:39 Baso % (Auto) Technical Illustrations Map Inker 07/05/21 19:48 Add Manual Diff Complete 07/07/21 05:39 Total Counted 100 07/07/21 05:39 Seg Neuts % (Manual) 63.0 % (40.0-70.0) 07/07/21 05:39 Band Neutrophils % 0 % 07/07/21 05:39 Lymphocytes % (Manual) 30.0 % (13.4-35.0) 07/07/21 05:39 Reactive Lymphs % (Man) 0 % 07/07/21 05:39 Monocytes % (Manual) 2.0 % (0.0-7.3) 07/07/21 05:39 Eosinophils % (Manual) 0 % (0.0-4.3) 07/07/21 05:39 Basophils % (Manual) 0 % (0.0-1.8) 07/07/21 05:39 Metamyelocytes % 0 % 07/07/21 05:39 Myelocytes % 0 % 07/07/21 05:39 Promyelocytes % 0 % 07/07/21 05:39 Blast Cells % 5.0 % 07/07/21 05:39 Nucleated RBC % Not Reportable 07/07/21 05:39 Seg Neutrophils # Man 6.0 K/mm3 (1.8-7.7) 07/07/21 05:39 Band Neutrophils # 0.0 K/mm3 07/07/21 05:39 Lymphocytes # (Manual) 2.9 K/mm3 (1.2-5.4) 07/07/21 05:39 Abs React Lymphs (Man) 0.0 K/mm3 07/07/21 05:39 Monocytes # (Manual) 0.2 K/mm3 (0.0-0.8) 07/07/21 05:39 Eosinophils # (Manual) 0.0 K/mm3 (0.0-0.4) 07/07/21 05:39 Basophils # (Manual) 0.0 K/mm3 (0.0-0.1) 07/07/21 05:39 Metamyelocytes # 0.0 K/mm3 07/07/21 05:39 Myelocytes # 0.0 K/mm3 07/07/21 05:39 Promyelocytes # 0.0 K/mm3 07/07/21 05:39 Blast Cells # 0.5 K/mm3 07/07/21 05:39 WBC Morphology Not Reportable 07/07/21 05:39 Hypersegmented Neuts Not Reportable 07/07/21 05:39 Hyposegmented Neuts Not Reportable 07/07/21 05:39 Hypogranular Neuts Not Reportable 07/07/21 05:39 Smudge Cells Not Reportable 07/07/21 05:39 Toxic Granulation Not Reportable 07/07/21 05:39 Toxic Vacuolation Not Reportable 07/07/21 05:39 Dohle Bodies Not Reportable 07/07/21 05:39 Pelger-Huet Anomaly Not Reportable 07/07/21 05:39 Gwendolyn Rods Not Reportable 07/07/21 05:39 Platelet Estimate Consistent w auto 07/07/21 05:39 Clumped Platelets Not Reportable 07/07/21 05:39 Plt Clumps, EDTA Not Reportable 07/07/21 05:39 Large Platelets Not Reportable 07/07/21 05:39 Giant Platelets Not Reportable 07/07/21 05:39 Platelet Satelliting Not Reportable 07/07/21 05:39 Plt Morphology Comment Not Reportable 07/07/21 05:39 RBC Morphology Normal 07/07/21 05:39 Dimorphic RBCs Not Reportable 07/07/21 05:39 Polychromasia Not Reportable 07/07/21 05:39 Hypochromasia Not Reportable 07/07/21 05:39 Poikilocytosis Not Reportable 07/07/21 05:39 Anisocytosis Not Reportable 07/07/21 05:39 Microcytosis Not Reportable 07/07/21 05:39 Macrocytosis Not Reportable 05/26/22 05:39 Spherocytes Not Reportable 07/07/21 05:39 Pappenheimer Bodies Not Reportable 07/07/21 05:39 Sickle Cells Not Reportable 07/07/21 05:39 Target Cells Not Reportable 07/07/21 05:39 Tear Drop Cells Not Reportable 07/07/21 05:39 Ovalocytes Not Reportable 07/07/21 05:39 Helmet Cells Not Reportable 07/07/21 05:39 García-[place] Bodies Not Reportable 07/07/21 05:39 [place] Rings Not Reportable 07/07/21 05:39 [place] Cells Not Reportable 07/07/21 05:39 Bite Cells Not Reportable 07/07/21 05:39 Crenated Cell Not Reportable 07/07/21 05:39 Elliptocytes Not Reportable 07/07/21 05:39 Acanthocytes (Spur) Not Reportable 07/07/21 05:39 Rouleaux Not Reportable 07/07/21 05:39 Hemoglobin C Crystals Not Reportable 07/07/21 05:39 Schistocytes Not Reportable 07/07/21 05:39 Malaria parasites Not Reportable 07/07/21 05:39 Augusto Bodies Not Reportable 07/07/21 05:39 Hem Pathologist Commnt No 07/07/21 05:39 PT 13.5 Sec. (12.2-14.9) 07/05/21 Unknown INR 0.93 (0.87-1.13) 07/05/21 Unknown Sodium 139 mmol/L (137-145) 07/07/21 05:39 Potassium 4.1 mmol/L (3.6-5.0) 07/07/21 05:39 Chloride 108.0 mmol/L (98-107) H 07/07/21 05:39 Carbon Dioxide 23 mmol/L (22-30) 07/07/21 05:39 Anion Gap 12 mmol/L 07/07/21 05:39 BUN 13 mg/dL (9-20) 07/07/21 05:39 Creatinine 0.6 mg/dL (0.8-1.3) L 07/07/21 05:39 Estimated GFR > 60 ml/min 07/07/21 05:39 BUN/Creatinine Ratio 22 % 07/07/21 05:39 Glucose 104 mg/dL (75-100) H 07/07/21 05:39 Lactic Acid 1.30 mmol/L (0.7-2.0) 07/05/21 19:53 Calcium 8.6 mg/dL (8.4-10.2) 07/07/21 05:39 Magnesium 2.10 mg/dL (1.7-2.3) 07/05/21 19:48 Total Bilirubin 0.30 mg/dL (0.1-1.2) 07/05/21 19:48 AST 49 units/L (5-40) H 07/05/21 19:48 ALT 54 units/L (7-56) 07/05/21 19:48 Alkaline Phosphatase 104 units/L (35-129) 07/05/21 19:48 Total Creatine Kinase 95 units/L (55-170) 07/05/21 19:48 Troponin T < 0.010 ng/mL (0.00-0.029) 07/05/21 19:48 Total Protein 6.9 g/dL (6.3-8.2) 07/05/21 19:48 Albumin 4.5 g/dL (3.9-5) 07/05/21 19:48 Albumin/Globulin Ratio 1.9 % 07/05/21 19:48 Urine Color Eliane (Yellow) 07/05/21 Unknown Urine Turbidity Clear (Clear) 07/05/21 Unknown Urine pH 5.0 (5.0-7.0) 07/05/21 Unknown Ur Specific [place] 1.034 (1.003-1.030) H 07/05/21 Unknown Urine Protein 100 mg/dl mg/dL (Negative) 07/05/21 Unknown Urine Glucose (UA) Neg mg/dL (Negative) 07/05/21 Unknown Urine Ketones 20 mg/dL (Negative) 07/05/21 Unknown Urine Blood Neg (Negative) 07/05/21 Unknown Urine Nitrite Neg (Negative) 07/05/21 Unknown Urine Bilirubin Neg (Negative) 07/05/21 Unknown Urine Urobilinogen < 2.0 mg/dL (<2.0) 07/05/21 Unknown Ur Leukocyte Esterase Neg (Negative) 07/05/21 Unknown Urine WBC (Auto) 2.0 /HPF (0.0-6.0) 07/05/21 Unknown Urine RBC (Auto) 12.0 /HPF (0.0-6.0) 07/05/21 Unknown U Epithel Cells (Auto) 1.0 /HPF (0-13.0) 07/05/21 Unknown Urine Mucus 3+ /HPF 07/05/21 Unknown Syphilis IgG/IgM Ab Nonreactive (NonReactive) 07/08/21 05:43 Coronavirus (PCR) Negative (Negative) 07/06/21 10:27 HIV 1&2 Antibody Rapid Non react (Non React) 07/08/21 05:43 HIV P24 Antigen Non react (Non React) 07/08/21 05:43 Collazo/IV: Voiding Method Toilet Active Medications - Current Medications Current Medications: Generic Name Dose Route Start Last Admin Trade Name Freq PRN Reason Stop Dose Admin Acetaminophen 650 mg 07/06/21 00:38 07/06/21 03:28 Acetaminophen 325 Mg Tab PO 650 mg Q4H PRN Administration Pain MILD(1-3)/Fever >100.5/MARLOW Azithromycin 500 mg 07/06/21 10:00 07/08/21 09:55 Azithromycin 250 Mg Tab PO 07/10/21 10:01 500 mg QDAY HAYDE Administration Protocol Heparin Sodium (Porcine) 5,000 unit 07/06/21 06:00 07/08/21 06:14 Heparin 5,000 Unit/1 Ml Vial SUB-Q 5,000 unit Q8HR HADYE Administration Sodium Chloride 1,000 mls @ 125 mls/hr 07/06/21 00:45 07/08/21 06:13 Nacl 0.9% 1000 Ml IV Infused DIRECT HAYDE Infusion Ceftriaxone Sodium 2 gm in 100 mls @ 200 mls/hr 07/06/21 01:00 07/08/21 06:13 Rocephin/Ns 2 Gm/100 Ml IV 07/10/21 02:59 Infused Q24H HAYDE Infusion Protocol Magnesium Hydroxide 30 ml 07/06/21 00:38 Magnesium Hydroxide (Mom) Oral Liqd Udc PO Q4H PRN Constipation Morphine Sulfate 2 mg 07/06/21 00:38 Morphine 2 Mg/1 Ml Inj IV Q4H PRN Pain, Moderate (4-6) Morphine Sulfate 4 mg 07/06/21 00:38 Morphine 4 Mg/1 Ml Inj IV Q4H PRN Pain , Severe (7-10) Ondansetron HCl 4 mg 07/06/21 00:38 Ondansetron 4 Mg/2 Ml Inj IV Q8H PRN Nausea And Vomiting Sodium Chloride 10 ml 07/06/21 10:00 07/07/21 21:57 Sodium Chloride 0.9% 10 Ml Flush Syringe IV 10 ml BID HAYDE Administration Sodium Chloride 10 ml 07/06/21 00:38 Sodium Chloride 0.9% 10 Ml Flush Syringe IV PRN PRN LINE FLUSH
--- NOTE | 2021-07-08 15:14 | Progress Note ---
Assessment and Plan Cultures: COVID-19 PCR negative A/P: 30-year-old man no past medical history now with: #Atypical pneumonia: Currently on antibiotics #Diffuse rash: Unclear etiology Recs: -Procalcitonin low -Continue ceftriaxone and azithromycin for now. -HIV and syphilis negative, would recommend if persistent dermatologic evaluation -If improved would plan to discharge on Omnicef 300 mg every 12 hours to complete 5 total days antibiotics. -Okay to discharge from ID perspective as above Thank you for the consult, we will continue to follow. Reji Lam MD [facility] ([facility]) O: [phone] F: [phone] Subjective Date of service: 07/08/21 Interval history: Afebrile, normal white count. No acute change. Negative HIV and syphilis. Objective - Exam Narrative Exam: Physical exam deferred to reduce risk of transmission of COVID-19. Please refer to primary team's note. - Constitutional Vitals: Vital Signs Temp Pulse Resp BP Pulse Ox 98.3 F 56 L 16 116/62 98 07/08/21 12:34 07/08/21 12:34 07/08/21 12:34 07/08/21 12:34 07/08/21 12:34 Temperature -Last 24 Hours Temperature 98.3 F Temperature 97.9 F Temperature 98.0 F Temperature 97.5 F Temperature 98.2 F - Labs CBC & Chem 7: 07/07/21 05:39 07/07/21 05:39
[2021-07-08 21:11] VITALS: BP 102/49
[2021-07-09] MEDS: cefTRIAXone/NS 2 GM/100 ML 2 GM/100 ML BAG IV SCH (00:20)
[2021-07-09] MEDS: HEPARIN 5,000 UNIT/1 ML VIAL SUB-Q SCH (06:03)
[2021-07-09] MEDS: SODIUM CHLORIDE 0.9% 1000 ML 1,000 ML IV SCH (06:09)
[2021-07-09] MEDS: AZITHROMYCIN 250 MG TAB PO SCH (09:03)
--- NOTE | 2021-07-09 10:04 | Discharge Summary ---
Providers - Providers Date of Admission: 07/06/21 00:38 Date of discharge: 07/09/21 Attending physician: REJI HUSTON 07/06/21 00:38 Consult to Physician [CONS] Routine Comment: Consulting Provider: KING HERNANDEZ Physician Instructions: Reason For Exam: Pneumonia, Generalized rash Primary care physician: LEAD TECHNICAL WRITER Hospitalization Reason for admission: sepsis Condition: Stable Hospital course: 30-year-old male with no significant past medical history was admitted through the emergency department with diagnosis of sepsis, atypical pneumonia and diffuse rash of unclear etiology. The patient met criteria for sepsis given fever, tachycardia and diagnosis of pneumonia. Sepsis present on admission. Hospital course: 07/06/2021. We will follow-up COVID PCR and if positive and hypoxic, we will start on dexamethasone. Follow-up procalcitonin levels. Continue ceftriaxone and azithromycin. ID following. 07/07/2021. COVID PCR was found to be negative. However, chest x-ray revealed Diffuse nodular opacities throughout the lungs, possible atypical pneumonia. Follow-up procalcitonin levels. Continue IV antibiotics per ID recommendations 07/08/2021. Continue IV antibiotics per ID recommendations. HIV and syphilis nonreactive. Follow-up procalcitonin levels. Anticipate discharge later today or in a.m. if okay with ID 07/09/2021. ID reports patient can discharge home with Omnicef 300 mg every 12 hours to complete 5 total days antibiotics. Dedicated discharge time 35 minutes Disposition: 30 STILL A PATIENT Final Discharge Diagnosis (Prints w/discharge instructions): sepsis, atypical pneumonia and diffuse rash of unclear etiology Core Measure Documentation - Palliative Care Palliative Care/ Comfort Measures: Not Applicable - Core Measures Any of the following diagnoses?: none Exam - Constitutional Vitals: Temp Pulse Resp BP Pulse Ox 97.8 F 51 L 20 102/49 98 07/08/21 20:35 07/08/21 20:35 07/08/21 20:35 07/08/21 20:35 07/09/21 07:00 General appearance: Present: no acute distress, well-nourished - EENT Eyes: Present: PERRL ENT: hearing intact, clear oral mucosa - Neck Neck: Present: supple, normal ROM - Respiratory Respiratory effort: normal Respiratory: bilateral: CTA - Cardiovascular Heart Sounds: Present: S1 & S2. Absent: rub, click - Extremities Extremities: pulses symmetrical, No edema Peripheral Pulses: within normal limits - Abdominal General gastrointestinal: Present: soft, non-tender, non-distended, normal bowel sounds Male genitourinary: Present: normal - Integumentary Integumentary: Present: clear, warm, dry - Musculoskeletal Musculoskeletal: gait normal, strength equal bilaterally - Psychiatric Psychiatric: appropriate mood/affect, intact judgment & insight - Neurologic Neurologic: CNII-XII intact, moves all extremities Plan Activity: advance as tolerated Weight Bearing Status: Weight Bear as Tolerated Diet: regular Follow up with: PRIMARY CARE, [Primary Care Provider] - 3-5 Days CAROLYN COY MD [Staff Physician] - 7 Days Prescriptions: Cefdinir 300 mg PO BID #10 cap
== END 2021-07-09 12:24 | disposition home or self-care (01) | DRG 871 ==
LOC: ED 16:23 → 3A 07-06 00:38
PROVIDERS: ADMIT Internal Medicine Geriatric Medicine; ATTEND Hospitalist
DX: A41.89 Other specified sepsis (principal); J18.8 Other pneumonia, unspecified organism; R21 Rash and other nonspecific skin eruption; Z20.822 Contact with and (suspected) exposure to COVID-19
CPT/HCPCS: 36415; 71045; 71270; 80048; 80053; 81001; 82140; 82550; 83735; 84145; 84484; 85007; 85025; 85610; 86592; 87806; G0378; J0696; J1100; J1644; J1885; J7030; Q9967; U0003